=== PATIENT | female | born 1990 | race Caucasian/White ===

== ENCOUNTER 2025-04-24 08:28 | Emergency (ER) | payer MEDICAID ==
[~2025-04-24] VITALS: Ht 162.6 cm; Wt 59.0 kg
[2025-04-24] MEDS ORDERED: diphenhydrAMINE HCL 50 MG/ML VIAL ONE (09:00)
[2025-04-24] MEDS ORDERED: KETOROLAC TROMETHAMINE 15 MG/ML VIAL ONE (09:01)
[2025-04-24] MEDS ORDERED: PROCHLORPERAZINE EDISYLATE 10 MG/2 ML VIAL ONE (09:01)
[2025-04-24] MEDS: diphenhydrAMINE HCL 50 MG/ML VIAL IV ONE (09:14)
[2025-04-24] MEDS: IV NS 0.9% 1,000 ML BAG IV ONE (09:15)
[2025-04-24] MEDS: KETOROLAC TROMETHAMINE 15 MG/ML VIAL IV ONE (09:15)
[2025-04-24] MEDS: PROCHLORPERAZINE EDISYLATE 10 MG/2 ML VIAL IVP ONE (09:16)
[2025-04-24 10:33] VITALS: BP 110/70; TEMP 98.5; O2SAT 97
== END 2025-04-24 10:33 | disposition home or self-care (01) ==
LOC: ER 08:30
DX: G43.909 Migraine, unspecified, not intractable, without status migrainosus (principal)
CPT/HCPCS: 99284; 96374; 96375; 96361; J1885; J0780; J1200; J7030